=== PATIENT | female | born 1955 ===

== ENCOUNTER → 2023-07-24 | Outpatient (CLI) | payer OTHER, MEDICARE ==
[~2023-07-24] MED LIST: ASPI81CH33 PO; ATOR80TA59 PO; BREO1INH3 PO; CALTTAB6 PO; CYMB60CA4 PO; ELIQ5TAB PO; FLON1SPR NARES; MAGN400C PO; METO1TAB32 PO; MULT-90 PO; NEXI40CA PO; POTA-165 PO
== END ==
LOC: M WUC 15:24
PROVIDERS: ATTEND Internal Medicine
DX: M54.50 Low back pain, unspecified (principal); M25.78 Osteophyte, vertebrae